=== PATIENT | female | born 1975 | race Caucasian/White ===

== ENCOUNTER → 2019-07-22 | Outpatient (CLI) | payer OTHER ==
[2019-07-22 09:10] LABS: BASO % 1 % (0-3); EOS # 0.1 x10^3/uL (0.0-0.7); EOS % 1 % (0-3); HEMATOCRIT 36.7 % (36.0-47.0); HEMOGLOBIN 12.2 g/dL (12.0-15.5); LYMPH # 2.2 x10^3/uL (1.0-4.8); LYMPH % 28 % (24-48); MEAN CORPUSCULAR HEMOGLOBIN 28 pg (25-35); MEAN CORPUSCULAR HGB CONC 33 g/dL (31-37); MEAN CORPUSCULAR VOLUME 86 fL (79-100); MONO # 0.4 x10^3/uL (0.0-1.1); MONO % 6 % (0-9); NEUT # 5.2 x10^3/uL (1.8-7.7); NEUT % 66 % (31-73); PLATELET COUNT 407 x10^3/uL (140-400); RED BLOOD COUNT 4.29 x10^6/uL (3.50-5.40); RED CELL DISTRIBUTION WIDTH 14.1 % (11.5-14.5); WHITE BLOOD COUNT 7.9 x10^3/uL (4.0-11.0)
[2019-07-22 09:38] LABS: ALBUMIN 3.4 g/dL (3.4-5.0); ALBUMIN/GLOBULIN RATIO 0.8 (1.0-1.7); CALCIUM 8.5 mg/dL (8.5-10.1); GFR 60.2; TOTAL BILIRUBIN 0.2 mg/dL (0.2-1.0); TOTAL PROTEIN 7.5 g/dL (6.4-8.2)
[2019-07-22 09:46] LABS: CHOLESTEROL/HDL RATIO 2.8
[2019-07-22 18:09] LABS: T3 TOTAL 141 ng/dL (71-180)
[2019-07-23 00:07] LABS: HEMOGLOBIN A1C 5.8 % (4.8-5.6)
[2019-07-24 15:10] LABS: GLIA IGA 2 units (0-19); GLIA IGG 2 units (0-19); TRANSGLUTAMINASE IGA AB <2 U/mL (0-3); TRANSGLUTAMINASE IGG AB <2 U/mL (0-5)
== END | disposition home or self-care (01) ==
LOC: LAB 08:40
PROVIDERS: ATTEND Family Medicine
DX: Z00.00 Encounter for general adult medical examination without abnormal findings (principal); R19.7 Diarrhea, unspecified; R53.83 Other fatigue
CPT/HCPCS: 36415; 80053; 80061; 82306; 83036; 83516; 84436; 84443; 84480; 85025

== ENCOUNTER → 2019-07-23 | Outpatient (CLI) | payer OTHER ==
--- NOTE | 2019-07-23 09:15 | KCIC ---
Lumbar spine 3 views. HISTORY: Back pain, leg weakness 3 views were taken of the lumbar spine. There is transitional anatomy. There is a transitional vertebra at the thoracolumbar junction with the rib on the left as transverse process on the right. There is a transitional vertebra at the lumbosacral junction. There is disc space narrowing between the last true lumbar vertebra and the transitional vertebra at the lumbosacral junction. Remaining disc spaces are normal in height. Lumbar spine is in normal alignment. No fracture is noted. IMPRESSION: 1. Transitional anatomy. 2. Disc space narrowing in the lower lumbar spine between the last lumbar vertebra and the transitional vertebra. 3. No other acute finding. Electronically signed by: Ross Adame MD (07/23/2019 9:12 AM) [id number]
--- NOTE | 2019-07-23 09:25 | KCIC ---
LUMBAR SPINE WO CONTRAST Date: 07/23/2019 8:45 AM Indication: Low back pain with progressive left lower extremity weakness Comparison: Radiograph 07/23/2019. Technique: Multi-planar multi-weighted magnetic resonance imaging of the lumbar spine was performed without intravenous contrast using the standard lumbar spine protocol. FINDINGS: The lumbar spine is normally aligned. No acute fracture. Moderate degenerative disc desiccation and disc height loss at L4-5. L5 hemangioma. The conus terminates at a normal level. No abnormal signal is seen within the visualized distal spinal cord. No clumping of intrathecal nerve roots. No soft tissue abnormality in the visualized abdomen or pelvis. T12-L1: No disc bulge. No facet arthropathy. No significant spinal stenosis or neural foraminal narrowing. L1-L2: No disc bulge. No facet arthropathy. No significant spinal stenosis or neural foraminal narrowing. L2-L3: No disc bulge. No facet arthropathy. No significant spinal stenosis or neural foraminal narrowing. L3-L4: Left foraminal disc protrusion moderately narrows the left neural foramen with abutment and displacement of the exiting left L3 nerve root. No spinal canal stenosis. L4-L5: Disc bulge with annular tear. Mild facet arthropathy. No significant spinal stenosis or neural foraminal narrowing. L5-S1: No disc bulge. Mild facet arthropathy. No significant spinal stenosis or neural foraminal narrowing. IMPRESSION: Disc protrusion at L3-4 moderately narrows the left neural foramen, with abutment and displacement of the exiting left L3 nerve root. Correlate for left L3 radiculopathy. Electronically signed by: Primo Rider MD (07/23/2019 9:22 AM) [id number]
== END | disposition home or self-care (01) ==
LOC: KCIC MRI 08:18 → EDUNIT# 08:45
PROVIDERS: ATTEND Family Medicine
DX: M48.07 Spinal stenosis, lumbosacral region (principal); M51.16 Intervertebral disc disorders with radiculopathy, lumbar region; M12.88 Other specific arthropathies, not elsewhere classified, other specified site; R53.1 Weakness
CPT/HCPCS: 72100; 72148

== ENCOUNTER → 2019-08-04 | Outpatient (CLI) | payer OTHER ==
[~2019-08-04] MED LIST: DESO1TAB PO; GABA-585 PO; NAPR500T8 PO; OMEP20TA63 PO; ORPH100T PO
--- NOTE | 2019-08-04 12:14 | NUR ---
ENCOURAGED PT TO SPEAK TO PCP RE: VITAMIN D LEVEL RESULT. VOICES UNDERSTANDING
--- NOTE | 2019-08-05 10:10 | NUR ---
Instructed patient to start Vitamin D3 1,000 units daily.
== END | disposition home or self-care (01) ==
LOC: SURGPAT 11:03
PROVIDERS: ATTEND Neurological Surgery
DX: Z01.818 Encounter for other preprocedural examination (principal); M51.16 Intervertebral disc disorders with radiculopathy, lumbar region; M62.81 Muscle weakness (generalized)
CPT/HCPCS: 36415; 87641

== ENCOUNTER 2019-08-07 08:39 | Day surgery (SDC) | payer OTHER ==
--- NOTE | 2019-08-06 12:31 | PREOP HP ---
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 She said she was recently at home building a garden box when she was doing a great deal of lifting. She said the following day, she had severe back pain and pain in her left hip which radiated to her left anterior thigh. The pain was initially very severe and she had difficulty standing and walking. She says now the back pain is more like an ache, but she has noted significant pain in her left leg when she walks as well as feelings of left leg weakness. The problem started about 4 weeks ago. She rates her pain currently 2/10, but it can become 7/10 if she stands and walks or with sitting. Sitting makes the pain worse. Changing positions helps. She has been taking naproxen, muscle relaxers and gabapentin. She has been doing physical therapy exercises religiously, but they have only increased her pain. There is no problem on the right side. She has never had a similar problem in the past. MEDICATIONS: 1. Naproxen. 2. Orphenadrine. 3. Gabapentin. ALLERGIES: ADHESIVE TAPE. PAST MEDICAL HISTORY: 1. Exercise induced asthma. 2. Headaches. 3. GERD. PAST SURGICAL HISTORY: No previous surgery noted. FAMILY HISTORY: Diabetes, spine problems. SOCIAL HISTORY: Employed as a physical therapist. . Does not smoke. Does not drink alcohol. REVIEW OF SYSTEMS: A 12-point review of systems was performed and is noncontributory except that mentioned above. PHYSICAL EXAMINATION: GENERAL: Alert, pleasant, in no acute distress. HEAD: Normocephalic, atraumatic. SKIN: Warm and dry. MUSCULOSKELETAL: Lumbar paraspinal muscle bulk is normal, restricted range of motion of the lumbar spine, mild to moderate tenderness of the lower lumbar spine with palpation, normal range of motion of the lower extremities bilaterally. EXTREMITIES: No clubbing, cyanosis or edema. NEUROLOGIC: Alert and oriented x 3. Strength is 5/5 in the bilateral lower extremities except 3/5 left hip flexor and 4/5 left quadriceps. Sensory is intact to light touch in the lower extremities except for a dysesthetic sensation in the left anterior thigh with light touch. Reflexes were present and symmetric in the lower extremities bilaterally except for a trace left knee jerk. Knee jerk was 2+ on the right. Negative straight leg raising bilaterally. Abnormal gait favoring her left leg. IMAGING: I reviewed a lumbar MRI scan from 07/23/2019. On that study, the principal abnormality is at L3-L4 where there is a large left foraminal disk protrusion which does displace the exiting L3 nerve root. At L4-L5, there is posterior disk bulging, but I did not see significant foraminal narrowing at that level. ASSESSMENT AND PLAN: The problems at L3-L4 on the left, I believe, is the source of her radiculopathy. She has significant quadriceps and left hip flexor weakness. I feel that surgery should be performed to decompress the left L3 nerve root. I spoke with her about being cautious with her activities. I do not want her to fall. I discussed the surgery, risks and expected postoperative course with her. She understands and would like to proceed. NAYA GILMORE MD DR: SOURAV/kathleen JOB#: [id number] / [id number]
[~2019-08-07] VITALS: Ht 172.7 cm; Wt 96.2 kg
[~2019-08-07 08:39] MED LIST changes: +BACITRACIN 50,000 UNIT in IV NORMAL SALINE 1000ML BAG 1,000 ML IRR ONE; +BUPIVACAINE-EPI 0.5%-1:200000 MPF 30 ML VIAL. ONE; +GELATIN SPONGE SIZE 100. ONE; +IV RINGERS,LACTATED 1000ML 1,000 ML IV SCH; +KETOROLAC 60 MG/2 ML VIAL. ONE; +LIDOCAINE 1% PF 2 ML VIAL. ID PRN; +ONDANSETRON PF 4 MG/2 ML VIAL. IV PRN; +PROCHLORPERAZINE 10 MG/2 ML VIAL. IV PRN; +THROMBIN TOPICAL 20,000 UNIT SPRAY.SYRN KIT TP ONE; +ceFAZolin 2GM PREMIX 2 GM/50 ML BAG IV ONE; +fentaNYL PF VIAL 100 MCG/2 ML VIAL IV PRN
[2019-08-07] MEDS ORDERED: CHOL500062 PO (09:01)
[2019-08-07] MEDS ORDERED: GLYCOPYRROLATE 1 MG/5 ML VIAL. ONE (09:13)
[2019-08-07] MEDS ORDERED: MIDAZOLAM HCL/PF 2 MG/2 ML VIAL. ONE (09:13)
[2019-08-07] MEDS ORDERED: fentaNYL PF VIAL 100 MCG/2 ML VIAL ONE (09:13)
[2019-08-07] MEDS ORDERED: ROCURONIUM 50 MG/5 ML VIAL. ONE (09:13)
[2019-08-07] MEDS ORDERED: DESFLURANE > 120 MINUTES IH ONE (09:13)
[2019-08-07] MEDS ORDERED: NEOSTIGMINE METHYLSULFATE 5 MG/5 ML SYRINGE. ONE (09:13)
[2019-08-07] MEDS ORDERED: REMIFENTANIL 2 MG VIAL. IV ONE (09:14)
[2019-08-07] MEDS ORDERED: PROPOFOL 20 ML IV ONE (09:15)
[2019-08-07] MEDS ORDERED: LIDOCAINE 2% PF 5 ML VIAL. ONE (09:15)
[2019-08-07] MEDS ORDERED: ONDANSETRON PF 4 MG/2 ML VIAL. ONE (09:15)
[2019-08-07] MEDS ORDERED: DEXAMETHASONE SOD PHOS 4 MG/ML VIAL ONE ×2 (09:15)
[2019-08-07] MEDS ORDERED: PROPOFOL 50 ML IV ONE ×2 (09:17→12:51)
[2019-08-07] MEDS ORDERED: HYDR-3164 PO (11:15)
[2019-08-07] MEDS ORDERED: DOCU-109 PO (11:15)
--- NOTE | 2019-08-07 11:17 | DISCH ---
DISCHARGE INSTRUCTIONS Condition on Discharge Condition on Discharge: Stable Activity After Discharge Activity Instructions for Disc: Activity as tolerated, Avoid exertion Other activity instructions: no driving for a week Bathing Instructions: Shower-keep dressing dry Lifting Instructions after Dis: No heavy lifting, No pulling or pushing, Do not lift >10 pounds Diet after Discharge Additional Diet Restrictions: resume home diet Wound Incision Care Wound/Incision Care: Ice to area for comfort Other wound/incision instructi: may remove dressing in 48 hours if dry then may shower, no soaking Contacting the after DC Call your doctor for: Concerns you may have Follow-Up Follow up with: Dr. Gilmore's nurse in 2 weeks [phone] NAYA GILMORE MD Aug 07, 2019 11:16
[2019-08-07] MEDS: MORPHINE SULFATE 2 MG/ML VIAL. IV PRN ×2 (14:13→14:16)
[2019-08-07] MEDS: HYDROmorphone 2 MG/ML VIAL IV PRN ×4 (14:27→14:47)
[2019-08-07] MEDS ORDERED: HYDROcodone/APAP 5/325MG 1 TAB TABLET PO ONE ×2 (14:30)
--- NOTE | 2019-08-07 15:09 | OP ---
DATE OF SURGERY: 08/07/2019 PREOPERATIVE DIAGNOSES: Foraminal disc herniation L3-L4 to left with severe left lumbar radiculopathy. POSTOPERATIVE DIAGNOSES: Foraminal disc herniation L3-L4 to left with severe left lumbar radiculopathy. OPERATION PERFORMED: Transfacet exposure of the left L3 nerve root at L3-L4, left, with removal of herniated foraminal disc and microdiscectomy. The operation was done with EMG monitoring, SSEP monitoring, fluoroscopy, microscopic dissection. SURGEON: Manoj Gilmore M.D. LABORATORY ASSOCIATE: KOMAL Jordan assisted with the surgery. She assisted with the exposure of the microdecompression, microdiscectomy as well as the closure. OPERATIVE INDICATIONS: The patient is a pleasant 43-year-old who developed intractable back and left leg pain, which failed conservative measures. She had above-mentioned findings on imaging studies and additionally, she had quadriceps and hip flexor weakness. I recommended lumbar microsurgery. I spoke about the surgery, the risks, technique and expected postoperative course and wished to go ahead. DESCRIPTION OF PROCEDURE: Following general endotracheal anesthesia, the patient was positioned prone on the Toby table. Lumbar region prepped and draped in standard fashion. EMILY hose and AV impulse boots were applied for DVT prophylaxis. The microscope was draped. Fluoroscopy was draped and brought into the field. Monitoring was established. Ancef 2 grams was given less than 1 hour prior to initiation of surgery. We were very careful to avoid any significant pressure points and we were also very careful with the C-arm when we rotated the patient, so as not to touch with above her arms or extremities in any way. Using fluoroscopic guidance, I made a midline incision over the L3-L4 interspace, dissected down through skin and subcutaneous tissue, reflected the paraspinal muscles and placed a [place] micro disc retractor. I burred the somewhat lateral hemilaminotomy and then I trimmed away the ligamentum flavum and exposed the dura of the exiting L4 root and then I drilled laterally between the pedicles of L3 and L4, removing bone over the neural foramen. I identified the L3 without difficulty. It was lifted by multiple disc fragments, which were both beneath the root medially, beneath the root laterally and inferiorly to the root. I began to tease back and remove these multiple disc fragments. As I worked, the region became well decompressed. I worked quite far laterally until I was unable to see any further disc or palpate any. I passed the [place] and as well as medially, I removed a significant amount of disc material. I entered the disc space and performed discectomy with pituitary rongeurs. I worked diligently and fully decompressed the entire region. I then explored carefully and assured myself there were no retained fragments. I irrigated. I obtained perfect hemostasis and I closed the wound in layers with absorbable suture. The skin was closed with 4-0 subcuticular stitch. I felt the surgery went very well. MANOJ GILMORE MD DR: LILLIE/kathleen JOB#: [id number] / [id number] MIKE
[2019-08-07 15:30] VITALS: BP 120/60
--- NOTE | 2019-08-11 17:06 | PATHOLOGY ---
[facility] Accession Number: [id number] . 01 Material submitted: . spinal cord - LUMBAR DISC AND DECOMPRESSION . 01 Clinical history: . Lumbar herniated disc with radiculopathy . 02 Diagnosis: Segments of fibrocartilaginous, adipose, and skeletal muscle tissue and bone, lumbar disc and decompression: - Degenerative changes of fibrocartilaginous tissue. LBQ 08/11/2019 0952 Local . 02 Comment: There is no evidence of an acute inflammatory process or malignancy. (JPM/db; 08/11/2019) . 02 Electronically signed: . Alvarado Núñez MD, Pathologist NPI- [id number] . 01 Gross description: . The specimen is received in formalin, labeled "Jacinta Borne, lumbar disc and decompression". Received is pink-mckeon gritty, fibrous tissue admixed with small fragments of bone measuring 4.2 x 3.8 x 0.6 cm in aggregate dimensions. The specimen is submitted representatively in cassette A1, following light decalcification. (CAA; 08/08/2019) QA/QAC 08/08/2019 1536 Local . 02 Pathologist provided ICD-10: M51.36 . 02 CPT . 755203, 251936 Specimen Comment: A courtesy copy of this report has been sent to [phone] Specimen Comment: Report sent to Specimen Comment: A duplicate report has been generated due to demographic updates. Performed at: 01 [facility] [address], [place] [id number] MD Kuldip Reynolds MD Phone: [phone] Performed at: 02 [facility] [address] [place], [place] [id number] MD Alvarado Núñez MD Phone: [phone]
== END 2019-08-07 16:05 | disposition home or self-care (01) ==
LOC: SURG 08:39
PROVIDERS: ATTEND Neurological Surgery
DX: M51.16 Intervertebral disc disorders with radiculopathy, lumbar region (principal); J45.909 Unspecified asthma, uncomplicated; K21.9 Gastro-esophageal reflux disease without esophagitis; Z88.8 Allergy status to other drugs, medicaments and biological substances
CPT/HCPCS: 63030; 81025; 97162; A7015; J0696; J1100; J1170; J1885; J2250; J2270; J2405; J2704; J2710; J3010; J3490; J7030; J7120; 76000

== ENCOUNTER → 2020-01-15 | Outpatient (CLI) | payer OTHER ==
[~2020-01-15] MED LIST changes: -BACITRACIN 50,000 UNIT in IV NORMAL SALINE 1000ML BAG 1,000 ML IRR ONE; -BUPIVACAINE-EPI 0.5%-1:200000 MPF 30 ML VIAL. ONE; +CHOL500062 PO; +DOCU-109 PO; -GELATIN SPONGE SIZE 100. ONE; +HYDR-3164 PO; -IV RINGERS,LACTATED 1000ML 1,000 ML IV SCH; -KETOROLAC 60 MG/2 ML VIAL. ONE; -LIDOCAINE 1% PF 2 ML VIAL. ID PRN; -ONDANSETRON PF 4 MG/2 ML VIAL. IV PRN; -PROCHLORPERAZINE 10 MG/2 ML VIAL. IV PRN; -THROMBIN TOPICAL 20,000 UNIT SPRAY.SYRN KIT TP ONE; -ceFAZolin 2GM PREMIX 2 GM/50 ML BAG IV ONE; -fentaNYL PF VIAL 100 MCG/2 ML VIAL IV PRN
[2020-01-16 00:08] LABS: HEMOGLOBIN A1C 5.7 % (4.8-5.6)
[2020-01-16 01:09] LABS: FSH 16.8 mIU/mL (.); LUTEINIZING HORMONE 6.4 mIU/mL (.); PROLACTIN 17.4 ng/mL (4.8-23.3)
[2020-01-16 12:13] LABS: INSULIN LEVEL 23.2 uIU/mL (2.6-24.9)
== END | disposition home or self-care (01) ==
LOC: LAB 07:17
PROVIDERS: ATTEND Obstetrics & Gynecology
DX: N92.6 Irregular menstruation, unspecified (principal); E55.9 Vitamin D deficiency, unspecified
CPT/HCPCS: 82627; 82652; 83001; 83002; 83036; 83525; 84146; 84402; 84403; 84443

== ENCOUNTER → 2020-01-28 | Outpatient (CLI) | payer OTHER ==
--- NOTE | 2020-01-28 08:59 | KCIC ---
Examination: Ultrasound Pelvis HISTORY: History of irregular menses COMPARISON: None available FINDINGS: The uterus measures 7.5 x 3.9 x 3.3 cm. There is a 2.2 x 1.8 x 2.3 cm pedunculated echogenicity identified in the anterior aspect of the uterus likely fibroid. Endometrium measures 1.7 mm in thickness. The right ovary measures 2.2 x 1.8 x 2.2 cm. There is a 1.5 cm cystic structure identified in the right ovary could be a follicle or cyst .The left ovary measures 2.0 x 1.6 x 1.0 cm. Blood flow identified in the right and left ovaries. IMPRESSION: 1. 2.2 cm pedunculated fibroid identified in the anterior uterus. 2. 1.5 cm cyst or follicle right ovary. Electronically signed by: Luan Richardson MD (01/28/2020 8:56 AM) [id number]
== END ==
LOC: KCIC US 07:51
PROVIDERS: ATTEND Obstetrics & Gynecology
DX: R93.89 Abnormal findings on diagnostic imaging of other specified body structures (principal); D52.9 Folate deficiency anemia, unspecified; Z87.42 Personal history of other diseases of the female genital tract
CPT/HCPCS: 76856

== ENCOUNTER → 2020-11-26 | Outpatient (CLI) | payer OTHER ==
[2020-11-26 07:43] LABS: BASO # 0.1 x10^3/uL (0.0-0.2); BASO % 1 % (0-3); EOS # 0.1 x10^3/uL (0.0-0.7); EOS % 1 % (0-3); HEMATOCRIT 37.4 % (36.0-47.0); HEMOGLOBIN 12.6 g/dL (12.0-15.5); LYMPH # 1.9 x10^3/uL (1.0-4.8); LYMPH % 27 % (24-48); MEAN CORPUSCULAR HEMOGLOBIN 29 pg (25-35); MEAN CORPUSCULAR HGB CONC 34 g/dL (31-37); MEAN CORPUSCULAR VOLUME 86 fL (79-100); MONO # 0.5 x10^3/uL (0.0-1.1); MONO % 7 % (0-9); NEUT # 4.5 x10^3/uL (1.8-7.7); NEUT % 64 % (31-73); PLATELET COUNT 333 x10^3/uL (140-400); RED BLOOD COUNT 4.36 x10^6/uL (3.50-5.40); RED CELL DISTRIBUTION WIDTH 14.3 % (11.5-14.5)
[2020-11-26 07:50] LABS: ALBUMIN 3.4 g/dL (3.4-5.0); ALBUMIN/GLOBULIN RATIO 0.8 (1.0-1.7); CALCIUM 8.8 mg/dL (8.5-10.1); GFR 59.7; TOTAL BILIRUBIN 0.2 mg/dL (0.2-1.0); TOTAL PROTEIN 7.5 g/dL (6.4-8.2)
[2020-11-26 07:56] LABS: CHOLESTEROL/HDL RATIO 3.3
[2020-11-26 23:08] LABS: HEMOGLOBIN A1C 5.8 % (4.8-5.6)
== END ==
LOC: LAB 07:02
PROVIDERS: ATTEND Family Medicine
DX: Z00.00 Encounter for general adult medical examination without abnormal findings (principal); E55.9 Vitamin D deficiency, unspecified
CPT/HCPCS: 36415; 80053; 80061; 82306; 83036; 84443; 85025

== ENCOUNTER → 2020-12-24 | Outpatient (CLI) | payer OTHER ==
[~2020-12-24] MED LIST changes: +LEXAPRO5 MG PO
--- NOTE | 2020-12-24 09:07 | KCIC ---
EXAM: Lumbar spine MRI without contrast. HISTORY: Right lower extremity pain and numbness. TECHNIQUE: Multiplanar, multisequence magnetic resonance imaging of the lumbar spine was performed wi thout contrast. COMPARISON: 07/23/2019 FINDINGS: There is minimal retrolisthesis of L3 on L4. There is degenerative endplate remodeling with disc space narrowing at L4-L5. There is disc desiccation at L3-L4 and L4-L5. There are several benig n osseous hemangiomas. There is no suspicious osseous lesion. There is no fracture. The conus termina dennis at T12-L1. There is postoperative scarring and susceptibility effect within the mid midline poste rior back soft tissues at the mid lumbar levels. At L1-L2 and L2-L3, there is no stenosis. At L3-L4, there is a left lateral recess to extra foraminal disc protrusion with 2 mm superior and in ferior extrusion superimposed on left lateral predominant endplate remodeling. There are left hemilam inectomy/facetectomy changes. There is slight retrolisthesis. There is moderate left foraminal stenos is with abutment of the exiting left L3 nerve root. There is narrowing of the left lateral recess. At L4-L5, there is a broad-based posterior central disc protrusion and annular tear and right foramin al to extra foraminal disc protrusion and osteophyte complex superimposed on a disc bulge and endplat e remodeling. There is minimal right foraminal stenosis with abutment or near abutment the exiting ri ght L4 nerve root. There is minimal central canal stenosis. At L5-S1, there are sacralized transverse processes at this level which articulates with the underlyi ng sacrum. This is a normal variant. There is a left foraminal to extra foraminal disc osteophyte com plex. There is minimal left foraminal stenosis with abutment or near abutment of the exiting left L5 nerve root. IMPRESSION: 1. L3-L4: Increase in a left lateral recess to extraforaminal disc protrusion with slight extrusion s uperimposed on left lateral predominant endplate remodeling. This results in increased moderate left foraminal stenosis and abutment the exiting left L3 nerve root. There is also slight increased narrow ing of the left lateral recess. There are left hemilaminectomy/facetectomy changes at this level. 2. L4-L5: Slight increase in a broad-based posterior central disc protrusion and stable right foramin al to extraforaminal disc protrusion and osteophyte complex. This is associated with stable minimal r ight foraminal and central canal stenosis at this level. 3. L5-S1: Stable left foraminal to extraforaminal disc osteophyte complex resulting in minimal left f oraminal stenosis and abutment or near abutment the exiting left L5 nerve root. The L5 segment is par tially sacralized and the L5 transverse processes articulate with the underlying sacrum. This is a no rmal variant. Electronically signed by: Nivia Rees MD (12/24/2020 9:04 AM) [id number]
== END ==
LOC: KCIC MRI 07:51
PROVIDERS: ATTEND Family Medicine
DX: M51.26 Other intervertebral disc displacement, lumbar region (principal); M48.07 Spinal stenosis, lumbosacral region; M25.78 Osteophyte, vertebrae
CPT/HCPCS: 72148

== ENCOUNTER → 2021-01-13 | Day surgery (SDC) | payer OTHER ==
[~2021-01-13] VITALS: Ht 172.7 cm; Wt 103.4 kg
[~2021-01-13] MED LIST changes: +GLYCOPYRROLATE 1 MG/5 ML SYRINGE. ONE; +IV RINGERS,LACTATED 1000ML 1,000 ML IV SCH; +LIDOCAINE 2% PF 5 ML VIAL. ONE; +PROPOFOL 10 MG/ML (20ML) VIAL. IV ONE; +ePHEDrine PF IN SALINE 50 MG/10 ML SYRINGE. IV ONE
[2021-01-13 10:36] VITALS: BP 119/60
[2021-01-13 12:15] VITALS: BP 116/64
== END | disposition home or self-care (01) ==
LOC: ENDOS 10:01
PROVIDERS: ATTEND Internal Medicine Gastroenterology
DX: R19.4 Change in bowel habit (principal); R14.0 Abdominal distension (gaseous); R10.12 Left upper quadrant pain; R19.7 Diarrhea, unspecified; K64.0 First degree hemorrhoids; K21.00 Gastro-esophageal reflux disease with esophagitis, without bleeding; K63.89 Other specified diseases of intestine; K31.89 Other diseases of stomach and duodenum; J45.909 Unspecified asthma, uncomplicated; G47.30 Sleep apnea, unspecified; E66.9 Obesity, unspecified; M19.90 Unspecified osteoarthritis, unspecified site; Z79.899 Other long term (current) drug therapy; Z98.890 Other specified postprocedural states; Z88.1 Allergy status to other antibiotic agents; Z88.8 Allergy status to other drugs, medicaments and biological substances
CPT/HCPCS: 43239; 45380; 81025; 88305; 88342; J2704; J3490

== ENCOUNTER → 2021-02-21 | Outpatient (CLI) | payer OTHER ==
[2021-01-13 12:15] VITALS: BP 116/64
[~2021-02-21] MED LIST changes: -GLYCOPYRROLATE 1 MG/5 ML SYRINGE. ONE; -IV RINGERS,LACTATED 1000ML 1,000 ML IV SCH; -LIDOCAINE 2% PF 5 ML VIAL. ONE; -PROPOFOL 10 MG/ML (20ML) VIAL. IV ONE; -ePHEDrine PF IN SALINE 50 MG/10 ML SYRINGE. IV ONE
== END ==
LOC: SPEC 11:17
PROVIDERS: ATTEND Nurse Practitioner Women's Health
DX: Z01.419 Encounter for gynecological examination (general) (routine) without abnormal findings (principal)
CPT/HCPCS: 87623; 88175

== ENCOUNTER → 2021-02-23 | Outpatient (CLI) | payer OTHER ==
[2021-01-13 12:15] VITALS: BP 116/64
[2021-02-23 23:07] LABS: ESTRADIOL LEVEL 87.2 pg/mL (.); FSH 32.7 mIU/mL (.); LUTEINIZING HORMONE 51.9 mIU/mL (.)
[2021-02-27 18:08] LABS: TESTOSTERONE FREE 0.45 ng/dL (0.10-0.85)
== END ==
LOC: LAB 07:51
PROVIDERS: ATTEND Nurse Practitioner Women's Health
DX: N92.6 Irregular menstruation, unspecified (principal)
CPT/HCPCS: 36415; 82627; 82670; 83001; 83002; 84402; 84403

== ENCOUNTER → 2021-06-27 | Outpatient (CLI) | payer OTHER ==
[2021-01-13 12:15] VITALS: BP 116/64
== END ==
LOC: LAB 15:59
PROVIDERS: ATTEND Internal Medicine Pulmonary Disease
DX: R50.9 Fever, unspecified (principal); R19.7 Diarrhea, unspecified; R11.2 Nausea with vomiting, unspecified; R53.81 Other malaise; Z20.822 Contact with and (suspected) exposure to COVID-19
CPT/HCPCS: U0003

== ENCOUNTER → 2021-08-12 | Outpatient (CLI) | payer OTHER ==
[2021-01-13 12:15] VITALS: BP 116/64
--- NOTE | 2021-08-12 08:31 | RAD ---
EXAMINATION: US ABDOMEN COMPLETE 08/12/2021 7:19 AM INDICATION: Left upper quadrant pain TECHNIQUE: Snow scale and color Doppler ultrasound images of the abdomen were obtained. COMPARISON: None. FINDINGS: Liver: The liver is normal in size measuring 17 cm in length and diffusely increased in the echogenic ity. No focal liver lesion. Main portal vein is patent with antegrade flow. Gallbladder: The gallbladder is normal in caliber. No cholelithiasis or sludge. The gallbladder wa ll is normal in thickness measuring 2 mm. Bile ducts: The common bile duct is normal measuring 4 mm. No intrahepatic biliary duct dilatation. Kidneys: The right kidney measures 10.6 x 4.2 x 4.4 cm. The left kidney measures 12.0 x 4.5 x 5.9 cm . Normal cortical thickness and echogenicity bilaterally. No hydronephrosis. Spleen: Spleen is normal in size measuring 9 cm Other: Abdominal aorta, inferior vena cava, and pancreas are obscured by bowel gas. IMPRESSION: 1. Hepatic steatosis. 2. Abdominal aorta, inferior vena cava, and pancreas are obscured by bowel gas. Electronically signed by: Yaima Tran MD (08/12/2021 8:28 AM) [id number]
== END ==
LOC: US 06:47
PROVIDERS: ATTEND Family Medicine
DX: K76.0 Fatty (change of) liver, not elsewhere classified (principal); R14.3 Flatulence
CPT/HCPCS: 76700